=== PATIENT | female | born 1995 | race African-American/Black ===

== ENCOUNTER 2023-08-09 09:40 | Observation (INO) | payer SELFPAY ==
[~2023-08-09] VITALS: Ht 162.6 cm; Wt 59.5 kg
[2023-08-09 10:00] VITALS: BP 124/86; PULSE 104; RESP 20; TEMP 98.2; O2SAT 100
== END 2023-08-09 12:58 | disposition home or self-care (01) ==
LOC: MED 09:40 → EDSTATUS 10:15 → MLD 10:30
PROVIDERS: ADMIT Obstetrics & Gynecology; ATTEND Obstetrics & Gynecology
DX: O26.892 Other specified pregnancy related conditions, second trimester (principal); R10.9 Unspecified abdominal pain; O99.342 Other mental disorders complicating pregnancy, second trimester; F20.9 Schizophrenia, unspecified; O99.322 Drug use complicating pregnancy, second trimester; F14.90 Cocaine use, unspecified, uncomplicated; F19.90 Other psychoactive substance use, unspecified, uncomplicated; Z3A.20 20 weeks gestation of pregnancy; Z88.8 Allergy status to other drugs, medicaments and biological substances
CPT/HCPCS: 76801; 81000; G0378; Q0092